=== PATIENT | female | born 1995 | race Caucasian/White ===

== ENCOUNTER 2017-07-19 16:11 | Outpatient (CLI) | payer OTHER ==
[2017-07-19 16:56] VITALS: BP 133/81; PULSE 91; RESP 18; TEMP 98
[2017-07-19 17:17] LABS: Basophils % (A) 0 %; Eosinophils % (A) 0 %; HCT 33.5 % (34.0-46.0); HGB 11.5 gm/dL (11.4-16.0); Lymphocytes # (A) 1.6 k/uL (1.0-4.8); Lymphocytes % (A) 27 %; MCH 28.9 pg (25.0-35.0); MCHC 34.5 g/dL (31.0-37.0); MCV 83.9 fL (80.0-100.0); Mean Platelet Volume 8.5; Monocytes # (A) 0.4 k/uL (0-1.0); Monocytes % (A) 7 %; Neutrophils # (A) 3.7 k/uL (1.3-7.7); Neutrophils % (A) 62 %; Platelet Count 190 k/uL (150-450); RBC 3.99 m/uL (3.80-5.40); RDW 14.9 % (11.5-15.5); WBC 5.9 k/uL (3.8-10.6)
[2017-07-19 17:20] LABS: Appearance,Urine Cloudy (Clear); Bacteria,Urine Rare /hpf; Bilirubin,Urine Negative (Negative); Blood,Urine Small (Negative); Color,Urine Light Yellow; Glucose,Urine (UA) Negative (Negative); Hyaline Casts,Urine 3 /lpf (0-2); Ketones,Urine Negative (Negative); Leukocyte Esterase,Urine Moderate (Negative); Mucus,Urine Rare /hpf; Nitrite,Urine Negative (Negative); PH, Urine 6.5 (5.0-8.0); Protein,Urine Negative (Negative); RBC,Urine 1 /hpf (0-5); Specific Gravity,Urine 1.008 (1.001-1.035); Squamous Epithelial Cell,Urine 5 /hpf (0-4); Urobilinogen,Urine <2.0 mg/dL (<2.0); WBC,Urine 5 /hpf (0-5)
[2017-07-19 17:24] LABS: ALT 27 U/L (9-52); AST 25 U/L (14-36); Blood Urea Nitrogen 11 mg/dL (7-17); LDH 474 U/L (313-618); Uric Acid 4.8 mg/dL (3.7-7.4)
--- NOTE | 2017-07-20 09:37 | P.MSEPDOC ---
Presenting Problems - Arrival Data Date of Arrival on Unit: 07/19/17 Time of Arrival on Unit: 16:11 Mode of Transport: Ambulatory - Complaint OB-Reason for Admission/Chief Complaint: Elevated Blood Pressure Medical History - Information : 1 Para: 0 Term: 0 : 0 Abortions: Spontaneous or Elective: 0 Number of Living Children: 0 - Gestational Age Gestational Age by JAY JAY (wks/days): 36 Weeks and 2 Days Review of Systems - Review of Systems Constitutional: No problems Breast: No problems ENT: No problems Cardiovascular: No problems Respiratory: No problems Gastrointestinal: No problems Genitourinary: No problems Musculoskeletal: No problems Neurological: No problems Skin: No problems Vital Signs - Temperature Temperature: 98 F Temperature Source: Temporal Artery Scan - Pulse Right Pulse Rate: 91 Pulse Assessment Method: Automatic Cuff - Respirations Respiratory Rate: 18 Oxygen Delivery Method: Room Air O2 Sat by Pulse Oximetry: 99 - Blood Pressure Right Arm Blood Pressure: 133/81 Blood Pressure Mean: 98 Blood Pressure Source: Automatic Cuff Medical Screen Scoring (Pre) - Cervical Exam Dilation: Exam Deferred Effacement: Exam Deferred Membranes: Intact - Uterine Contractions Frequency: > 5 minutes apart = 1 - Maternal Vital Signs Maternal Temperature: N/A Maternal Blood Pressure: N/A Signs of Preeclampsia: N/A Maternal Respirations: N/A - Pain Assessment Pain Scale Used: Numeric (1 - 10) Pain Intensity: 0 - Maternal Trauma Maternal Trauma: N/A - Assessment Baseline FHR: 136 Heart Rate - NICHD Category: Category I (Normal) = 0 NST: Reactive Position: N/A Station: N/A - Total Score Total Score (Pre): 1 - Level of Risk Level of Risk: Low (0-5) Physician Notification (Pre) - Physician Notified Physician Notified Date: 07/19/17 Physician Notified Time: 17:40 Physician/Practitioner Notifed:: [email or web address] Spoke With: mulugeta - Notification Comment Comment: sent from office for PIH workup- results called to dr dalal. may discharge home to follow up next week Disposition - Disposition OB Disposition: Triage, Discharge to home, Written follow up instructions reviewed Discharge Date: 07/19/17 Discharge Time: 17:50 I agree with the RN Medical Screening Exam: Yes Risk & Benefit of care provided described in d/c instruction: Yes Diagnosis: GESTATIONAL HTN W/O SIGNIFICANT PROTEINURIA, THIRD TRIMESTER
== END 2017-07-19 17:50 | disposition home or self-care (01) ==
LOC: FBPOP 16:11
PROVIDERS: ATTEND Obstetrics & Gynecology
DX: O13.3 Gestational [pregnancy-induced] hypertension without significant proteinuria, third trimester (principal); Z3A.36 36 weeks gestation of pregnancy
CPT/HCPCS: 59025; 81001; 82565; 83615; 84450; 84460; 84520; 84550; 85025

== ENCOUNTER 2017-07-31 11:54 | Inpatient (IN) | payer OTHER ==
[2017-07-31] MEDS ORDERED: LACTATED RINGERS 1,000 ML IV SCH (12:45)
[2017-07-31 13:12] LABS: Basophils % (A) 0 %; Eosinophils # (A) 0.1 k/uL (0-0.7); Eosinophils % (A) 1 %; HCT 36.7 % (34.0-46.0); HGB 12.8 gm/dL (11.4-16.0); Lymphocytes # (A) 1.4 k/uL (1.0-4.8); Lymphocytes % (A) 15 %; MCH 29.6 pg (25.0-35.0); MCHC 34.8 g/dL (31.0-37.0); MCV 85.1 fL (80.0-100.0); Mean Platelet Volume 7.6; Monocytes # (A) 0.6 k/uL (0-1.0); Monocytes % (A) 6 %; Neutrophils # (A) 7.3 k/uL (1.3-7.7); Neutrophils % (A) 76 %; Platelet Count 216 k/uL (150-450); RBC 4.32 m/uL (3.80-5.40); RDW 15.5 % (11.5-15.5); WBC 9.6 k/uL (3.8-10.6)
[2017-07-31] MEDS: LACTATED RINGERS 1,000 ML IV SCH (13:15)
[2017-07-31 13:20] LABS: ALT 27 U/L (9-52); AST 21 U/L (14-36); Blood Urea Nitrogen 9 mg/dL (7-17); LDH 469 U/L (313-618); Uric Acid 5.1 mg/dL (3.7-7.4)
[2017-07-31] MEDS ORDERED: SUCCINYLCHOLINE CHLORIDE 100 MG/5 ML SYR IV ONE (13:32)
[2017-07-31] MEDS ORDERED: MORPHINE SULFATE 10 MG/ML SYRINGE ONE (13:32)
[2017-07-31] MEDS ORDERED: ONDANSETRON 4 MG/2 ML VIAL ONE (13:32)
[2017-07-31] MEDS ORDERED: KETOROLAC 30 MG/ML 1 ML VIAL ONE (13:32)
[2017-07-31] MEDS ORDERED: PROPOFOL 10 MG/ML 20 ML VIAL IV ONE (13:32)
[2017-07-31] MEDS ORDERED: OXYTOCIN 10 UNIT/ML 1 ML VIAL ONE (13:32)
[2017-07-31] MEDS ORDERED: fentaNYL (PF) 50 MCG/ML 2 ML AMP ONE (13:32)
[2017-07-31] MEDS ORDERED: ceFAZolin 1,000 MG VIAL ONE (13:32)
[2017-07-31 13:36] LABS: Appearance,Urine Clear (Clear); Bilirubin,Urine Negative (Negative); Blood,Urine Negative (Negative); Color,Urine Yellow; Glucose,Urine (UA) Negative (Negative); Hyaline Casts,Urine 1 /lpf (0-2); Ketones,Urine Negative (Negative); Leukocyte Esterase,Urine Small (Negative); Mucus,Urine Rare /hpf; Nitrite,Urine Negative (Negative); Protein,Urine Trace (Negative); RBC,Urine <1 /hpf (0-5); Specific Gravity,Urine 1.012 (1.001-1.035); Squamous Epithelial Cell,Urine 4 /hpf (0-4); Urobilinogen,Urine <2.0 mg/dL (<2.0); WBC,Urine 1 /hpf (0-5)
--- NOTE | 2017-07-31 13:36 | US ---
EXAMINATION TYPE: US OB BPP wo non-stress DATE OF EXAM: 07/31/2017 COMPARISON: NONE CLINICAL HISTORY: non-reassuring heart tones. Decreased movement EXAM PERFORMED: Transabdominal (TA) BPP PARAMETERS: PRESENTATION: Vertex LIE: Longitudinal?? HEART RATE: 139 bpm RHYTHM: Normal ANNA: 5.9cm DIAPHRAGM IMAGED: yes BPP SCORIN. Breathin (1 episode of breathing of 30 second duration in 30 minutes of scanning time) 2. Movement: 0 (at least 3 discrete body movements in 30 minutes) 3. Tone: 0 (1 episode of active flexion/extension of limb) 4. ANNA: 2 (ANNA index > 5cm) TOTAL SCORE: 2 / 8
[2017-07-31] MEDS ORDERED: diphenhydrAMINE 50 MG CAP PO PRN (14:00)
[2017-07-31] MEDS ORDERED: METOCLOPRAMIDE 5 MG/ML 2 ML VIAL IVP PRN (14:00)
[2017-07-31] MEDS ORDERED: ACETAMINOPHEN TAB 325 MG TAB PO PRN (14:00)
[2017-07-31] MEDS ORDERED: MEASLES-MUMPS-RUBELLA VACC/PF 12,500 UNIT/0.5 ML VIAL SQ ONE (14:00)
[2017-07-31] MEDS ORDERED: KETOROLAC 30 MG/ML 1 ML VIAL IVP PRN (14:00)
[2017-07-31] MEDS ORDERED: ZOLPIDEM 5 MG TAB PO PRN (14:00)
[2017-07-31] MEDS ORDERED: diphenhydrAMINE 50 MG/ML 1 ML VIAL IVP PRN ×2 (14:00)
[2017-07-31] MEDS ORDERED: ONDANSETRON 4 MG/2 ML VIAL IVP PRN (14:00)
[2017-07-31] MEDS ORDERED: diphenhydrAMINE 25 MG CAP PO PRN (14:00)
[2017-07-31] MEDS ORDERED: NALOXONE 0.4 MG/ML 1 ML VIAL IV PRN (14:00)
--- NOTE | 2017-07-31 14:07 | P.HPOB ---
History of Present Illness H&P Date: 07/31/17 Chief Complaint: Intrauterine at term: Nonreassuring heart tones Patient is a 22-year-old at 38 weeks gestation arise for decreased movement. She reports that through the last 48 hours she felt minimal movement including yesterday when she felt one movement. She was aware to do kick counts and did do kick counts and we can but did not receive enough to Warrant passing of kick counts. She said that she talk to her mom who told her was most likely fine and not worry about it. She did not call our office or come in to labor and delivery for further evaluation over the last 48 hours despite decreasing movement. Once she arrived to labor and delivery a NST was found to be nonreactive after 25 minutes of NST did order a biophysical profile immediately for stat. I did watch the biophysical profile within the first few minutes I determined based on in the findings that there was going to be a very low number and the was ordered to be prepared for an emergent section. I do not have final biophysical profile results, however the ANNA was 5 with all pockets less than 2 cm. And while I was watching I did also do vibroacoustic stimulation which did not have any response. While the section was being readied the therapeutic case manager did complete biophysical profile. Again at this time I don't have the final result. Her course up to this time had been unremarkable other than some numbness in her hands and swelling in her ankles. She did receive RhoGAM at approximately 28 weeks. And no other abnormalities were noted. She denies any other medical problems. Her surgical history assume for my myringotomy and adenoid and tonsillectomy. ALLERGIES to Bactrim. Social history is unremarkable. Family history of heart disease and hypertension. Please see operative note for information regarding the surgery itself. Past Medical History Past Medical History: Asthma History of Any Multi-Drug Resistant Organisms: None Reported Past Surgical History: Adenoidectomy, Ear Surgery, Tonsillectomy Smoking Status: Never smoker Medications and Allergies Home Medications Medication Instructions Recorded Confirmed Type 78/Iron/Folate 1/Dha 1 each PO DAILY 07/19/17 07/31/17 History [Prenate Dha Softgel] Allergies Allergy/AdvReac Type Severity Reaction Status Date / Time milk Allergy Nausea & Verified 07/31/17 12:17 Vomiting & Diarrhea Exam Osteopathic Statement: *. No significant issues noted on an osteopathic structural exam other than those noted in the History and Physical/Consult. - Vital Signs Vital signs: Intake and Output 07/30/17 07/31/17 07/31/17 22:59 06:59 14:59 Other: Weight 78.018 kg Results Result Diagrams: 07/31/17 12:58 07/31/17 12:58 Abnormal Lab Results - Last 24 Hours (Table) 07/31/17 Range/Units 12:58 Urine Protein Trace H (Negative) Ur Leukocyte Esterase Small H (Negative) Urine Mucus Rare H (None) /hpf
--- NOTE | 2017-07-31 14:11 | P.OP ---
Date of Procedure: 07/31/17 Preoperative Diagnosis: Intrauterine at term: Nonreassuring heart tones Postoperative Diagnosis: Same Procedure(s) Performed: Primary low-transverse section Anesthesia: RADHAMES Surgeon: Adebayo Ye Welfare Adviser #1: Jakub Bah Estimated Blood Loss (ml): 500 IV fluids (ml): 1,000 Urine output (ml): 50 Pathology: other (Placenta) Condition: stable Disposition: floor Operative Findings: Male scores and weight are pending and babies in special care nursery with sledger present Description of Procedure: Patient was taken to the operating suite where general anesthetic was found be adequate. She was previously prepped and draped. A Pfannenstiel skin incision was made and this incision was then carried through to underlying layer of the fascia. Fascia was then nicked in the midline and this incision was extended laterally with Henderson's scissors. Superior and inferior aspects of this incision were then grasped tented up and bluntly and sharply dissected off the rectus muscles. Rectus muscles were then divided midline and blunt dissection the peritoneum was made. This opening was then extended superiorly and inferiorly with good visualization of both bowel bladder. Bladder blade was placed knife was then used to incise uterus above the bladder line. Once this was completed a hemostat was used to fully develop the incision and it was extended bluntly. Head was then atraumatically delivered followed by shoulders. Umbilical cord was clamped and cut immediately and baby was taken by nursery personnel. Cord blood sample was obtained as well as blood for Rh antibody. Placenta was then delivered intact and Pitocin was added to the IV. Uterus was then exteriorized cleared of clots and debris and closed in 2 layers with 0 Vicryl suture. Blood and debris was then suctioned from the posterior cul-de-sac and the uterus was reinserted into the abdomen. Peritoneal layer was then closed with 3-0 Vicryl. Fascial layer was closed [place] suture. One layer of 3 and 3-0 Vicryl was placed in deep subcuticular tissues to reapproximate the skin and close space. Skin was then closed [place]. Sponge, lap, needle counts were all correct 2. Patient was then taken to the recovery room in stable and satisfactory condition.
[2017-07-31] MEDS: HYDROmorphone PCA 5 MG/25 ML SYRINGE IV PRN (14:50)
[2017-07-31 15:05] LABS: Amphetamine Screen,Urine Not Detected (NotDetected); Barbiturate Screen,Urine Not Detected (NotDetected); Benzodiazepines Screen,Urine Not Detected (NotDetected); Cocaine Screen,Urine Not Detected (NotDetected); Methadone Screen, Urine Not Detected (NotDetected); Opiate Screen,Urine Not Detected (NotDetected); Oxycodone Screen, Urine Not Detected (NotDetected); Phencyclidine Screen,Urine Not Detected (NotDetected); Tricyclic Antidepressant,Urine Not Detected (NotDetected); Urn Cannabinoid Scrn Not Detected (NotDetected)
[2017-07-31 15:32] VITALS: BMI 33.5
--- NOTE | 2017-07-31 17:45 | P.PN ---
Progress Note - Text Progress Note Date: 07/31/17 Patient is seen and evaluated postop day 0. She is resting comfortably in bed pain is adequately controlled currently with SIGNAL SUPERVISOR. I did discuss with she, her , and both of their mothers that is unclear what the etiology of today's events was. Did not see anything unusual on the placenta there was no nuchal cord or other findings that I can determine other than potentially with low ANNA some type of cord compression but even that is difficult to say with any certainty. [facility]. scores were 0, 5 , and 7 at one and 5 and 10 minutes. It is somewhat unusual from my standpoint that the initial heart rate was absent when she was doing the biophysical profile cardiac activity was easily visualized and was 139 bpm. Even after the biophysical profile was done in the 2 or 3 minutes prior to going to the C- section room the baby was back on the monitor with heart rate of 150. To the best of my ability of explained the thought process and what guided our decision making process leading up to the section family and patient all seemed to understand the process of what occurred but like myself are confused at what may have led to this event. At this time however Siobhan is from a medical standpoint and surgical standpoint stable. We'll plan to allow her to have liquids tonight and maintain pain control with expectation that she may able to go home tomorrow or certainly the next day if she is continuing to improve.
[2017-07-31] MEDS ORDERED: OXYTOCIN 20 UNITS/1000 ML NS 1,000 ML IV SCH (18:15)
[2017-07-31] MEDS: SENNOSIDES-DOCUSATE SODIUM 1 EACH TAB PO SCH (21:50)
[2017-08-01] MEDS: LACTATED RINGERS 1,000 ML IV SCH ×2 (01:05→05:54)
[2017-08-01] MEDS: HYDROmorphone PCA 5 MG/25 ML SYRINGE IV PRN (05:34)
[2017-08-01] MEDS: SENNOSIDES-DOCUSATE SODIUM 1 EACH TAB PO SCH ×2 (08:03→19:53)
[2017-08-01 08:14] LABS: Basophils % (A) 0 %; Eosinophils % (A) 0 %; HCT 33.1 % (34.0-46.0); HGB 11.1 gm/dL (11.4-16.0); Lymphocytes # (A) 0.9 k/uL (1.0-4.8); Lymphocytes % (A) 9 %; MCH 29.4 pg (25.0-35.0); MCHC 33.7 g/dL (31.0-37.0); MCV 87.3 fL (80.0-100.0); Mean Platelet Volume 7.5; Monocytes # (A) 0.3 k/uL (0-1.0); Monocytes % (A) 3 %; Neutrophils # (A) 8.8 k/uL (1.3-7.7); Neutrophils % (A) 86 %; Platelet Count 170 k/uL (150-450); RBC 3.79 m/uL (3.80-5.40); RDW 15.8 % (11.5-15.5); WBC 10.2 k/uL (3.8-10.6)
--- NOTE | 2017-08-01 08:34 | P.PNOBGPC ---
Subjective - Subjective Principal diagnosis: Status post primary section postoperative day #1 Interval history: Patient has been ambulating to the bathroom. She is urinating without difficulty. She denies any flatus or bowel movement yet. Pain is fairly well controlled with PEDIATRIC NEPHROLOGIST pump. Lochia is decreasing. She is attempting to pump her breast milk. I did have a long discussion with the patient regarding the events of yesterday and the symptoms leading up to that point. She states when she saw me in the office last week she was feeling very good movement and it continued all the way up until the weekend. She stated she started to feel less strong movement but she was still feeling movement for 1 day and then the next day she didn't feel any movement. She stated this happened once before earlier on in her and when she waited a day and the movement returned. Her family told her that the baby was most likely trying to turn. This time the movement did not return and therefore she came in yesterday for decreased movement. She denied any other symptoms such as headaches, blurry vision, or epigastric pain. She was not feeling irregular contractions. Currently she states that [facility] called her yesterday and told her that the baby's platelets were low and they were going to transfuse him. They also told her that he is still on a breathing tube but they are lowering the amount of oxygen that he needs. Patient reports: Reports appetite normal, Reports voiding normally, Reports pain well controlled, Reports ambulating normally : transported Objective - Vital Signs Latest vital signs: Vital Signs Temp Pulse Resp BP Pulse Ox 08/01/17 04:00 98.1 F 92 16 130/80 08/01/17 00:00 98.1 F 87 16 142/75 07/31/17 20:00 98.2 F 98 16 135/82 07/31/17 16:18 98.4 F 87 18 137/74 98 07/31/17 15:48 94 18 144/78 98 07/31/17 15:18 85 16 128/72 98 07/31/17 15:03 80 16 131/70 98 07/31/17 14:48 88 16 135/72 99 07/31/17 14:33 88 16 139/85 98 07/31/17 14:18 97.5 F L 92 16 143/80 98 07/31/17 13:26 125 H 16 134/75 07/31/17 12:32 97.9 F 104 H 16 144/86 07/31/17 12:05 97.9 F 104 H 16 144/86 97 Intake and Output 07/31/17 08/01/17 08/01/17 22:59 06:59 14:59 Intake Total 60 1200 Output Total 350 450 Balance -290 750 Intake: Oral 60 1200 Output: Urine 350 450 Uretheral (Amos) 450 - Exam Extremities: Present: edema (One plus pitting edema). Absent: tenderness Abdomen: Present: normal appearance, soft. Absent: distention, tenderness Incision: Present: normal, dry, intact. Absent: erythematous Uterus: Present: normal, firm. Absent: tenderness - Labs Labs: Abnormal Lab Results - Last 24 Hours (Table) 07/31/17 08/01/17 Range/Units 12:58 07:40 RBC 3.79 L (3.80-5.40) m/uL Hgb 11.1 L (11.4-16.0) gm/dL Hct 33.1 L (34.0-46.0) % RDW 15.8 H (11.5-15.5) % Neutrophils # 8.8 H (1.3-7.7) k/uL Lymphocytes # 0.9 L (1.0-4.8) k/uL Urine Protein Trace H (Negative) Ur Leukocyte Esterase Small H (Negative) Urine Mucus Rare H (None) /hpf Assessment and Plan Assessment: Impression is status post primary stat section postoperative day #1 (1) delivery delivered Current Visit: Yes Status: Acute Code(s): O82 - ENCOUNTER FOR DELIVERY WITHOUT INDICATION SNOMED Code(s): 428203810 Plan: We'll continue with postoperative care. Will switch to oral pain medication. I have advised daily that she should stay until she is at least passing some flatus and her pain is well-controlled on oral pain medication. I will check back later today to see how she is doing and if she is doing better, she may be able to be discharge early so that she can go see her baby.
[2017-08-01] MEDS ORDERED: HYDROcodone/APAP 5-325MG 1 EACH TAB PO PRN (08:44)
[2017-08-01] MEDS ORDERED: HYDROcodone/APAP 7.5-325MG 1 EACH TAB PO PRN (08:44)
[2017-08-01] MEDS: IBUPROFEN 600 MG TAB PO PRN ×2 (16:18→22:26)
[2017-08-02] MEDS: IBUPROFEN 600 MG TAB PO PRN (08:24)
--- NOTE | 2017-08-02 08:37 | P.DS ---
Providers Date of admission: 07/31/17 13:27 Expected date of discharge: 08/02/17 Attending physician: Leonor Figueroa - Discharge Diagnosis(es) (1) delivery delivered Current Visit: Yes Status: Acute Hospital Course: This is a 22-year-old female 1 para 0 at 38-0/7 weeks who presented to labor and delivery with complaints of decreased movement for 2 days. Please see history and physical for details of patient's admission. She had a nonreactive nonstress test and biophysical profile was low and therefore stat section was called. She underwent a primary low transverse section under general anesthesia and delivered a viable male with scores of 0 at 1 minute 5 at 5 minutes and 7 at 10 minutes and infant weight of 6 lbs. 0 oz. Her [facility] and apparently is doing well at this time. She has been pumping her breast milk. Lochia is decreasing. She is passing flatus but no bowel movement yet. Pain is well- controlled with ibuprofen. Vital signs are stable. Abdomen is soft with positive bowel sounds 4. Incision is clean dry and intact. Vanessa are in place. There is a small amount of dried blood on the left side of the incision. Extremities show negative Homans. Impression is status post stat section postoperative day #2. Plan is to discharge home today. [place] will be removed and Steri-Strips placed prior to discharge. She will be given a prescription for ibuprofen. She is advised to follow up in the office in 1 week for a postoperative check and in 6 weeks for a check. She has a breast pump at home. Routine and postoperative instructions are given. She is advised to call the office if she has any further questions or concerns prior to her appointment times. Procedures: Stat primary low transverse section on 07/31/2017 with delivery of a viable male infant Patient Condition at Discharge: Stable Plan - Discharge Summary New Discharge Prescriptions: New Ibuprofen [Motrin] 600 mg PO Q6HR PRN #60 tab PRN Reason: Mild Pain Or Fever >= 100.5 Continue 78/Iron/Folate 1/Dha [Prenate Dha Softgel] 1 each PO DAILY Discharge Medication List 78/Iron/Folate 1/Dha [Prenate Dha Softgel] 1 each PO DAILY 07/19/17 [ History] Ibuprofen [Motrin] 600 mg PO Q6HR PRN #60 tab 08/02/17 [Rx] Follow up Appointment(s)/Referral(s): Leonor Figueroa DO [Doctor of Osteopathic Medicine] - 1 Week Activity/Diet/Wound Care/Special Instructions: Instructions 1. Do not begin any exercise program for 3 weeks. 2. Do not resume sexual relations for 3 weeks or longer if uncomfortable. 3. You may take tub baths or showers at any time. 4. You may use tampons if desired after 3 weeks. 5. Keep the area of episiotomy (stitches) clean and dry. 6. If you are not nursing, wear a good fitting, supportive bra during the day and limit fluid intake for at least 1 week to prevent breast engorgement. 7. Call the office, [phone], within the next week to make appointment for your 6 week checkup if it has not already been made. 8. Report any of the following occurrences to the doctor promptly: a. Heavy, excessive bleeding b. Chills, fever c. Burning or frequency of urination d. Pain or redness and breasts if nursing e. Increasing pain or swelling in episiotomy (stitches). In addition to the above instructions, the following additional should be followed: 1. No heavy lifting or straining (exercising) until after 6 week checkup. 2. Keep abdominal incision clean and dry: You may wear a dressing if more comfortable. 3. Make office appointment for 10 days after going home or as instructed by her doctor. Discharge Disposition: HOME SELF-CARE
[2017-08-02] MEDS: SENNOSIDES-DOCUSATE SODIUM 1 EACH TAB PO SCH (09:29)
[2017-08-02 10:14] VITALS: BP 132/75; PULSE 96; RESP 18; TEMP 97.4
== END 2017-08-02 11:30 | disposition home or self-care (01) | DRG 766 ==
LOC: FBPOP 11:54 → 4FBP 13:27
PROVIDERS: ADMIT Obstetrics & Gynecology; ATTEND Obstetrics & Gynecology
PROC: 10D00Z1 Extraction of Products of Conception, Low, Open Approach (ICD-10-PCS; principal; 2017-07-31 13:30)
DX: O76 Abnormality in fetal heart rate and rhythm complicating labor and delivery (principal); O99.52 Diseases of the respiratory system complicating childbirth; J45.909 Unspecified asthma, uncomplicated; Z37.0 Single live birth; Z3A.38 38 weeks gestation of pregnancy; Z88.2 Allergy status to sulfonamides; Z82.49 Family history of ischemic heart disease and other diseases of the circulatory system; Z91.011 Allergy to milk products
CPT/HCPCS: 59025; 76819; 80306; 81001; 82565; 82947; 83615; 84450; 84460; 84520; 84550; 85025; 88307; 96360; 99215

== ENCOUNTER → 2018-10-19 | Outpatient (CLI) | payer OTHER ==
[2018-10-19 16:58] LABS: Basophils % (A) 1 %; Eosinophils # (A) 0.1 k/uL (0-0.7); Eosinophils % (A) 1 %; HCT 44.5 % (34.0-46.0); HGB 14.7 gm/dL (11.4-16.0); Lymphocytes # (A) 1.6 k/uL (1.0-4.8); Lymphocytes % (A) 26 %; MCH 28.7 pg (25.0-35.0); MCV 86.9 fL (80.0-100.0); Mean Platelet Volume 6.7; Monocytes # (A) 0.3 k/uL (0-1.0); Monocytes % (A) 4 %; Neutrophils % (A) 66 %; Platelet Count 355 k/uL (150-450); RBC 5.12 m/uL (3.80-5.40); RDW 13.8 % (11.5-15.5); WBC 6.1 k/uL (3.8-10.6)
[2018-10-20 01:15] LABS: T4, Free (Free Thyroxine) 1.3 ng/dL (0.80-1.80)
[2018-10-20 01:17] LABS: African American GFR (CKD) 120.4 (60.0-200.0); Albumin/Globulin Ratio 2.5 (1.60-3.17); Calcium 10.2 mg/dL (8.7-10.3); Potassium 4.1 mmol/L (3.5-5.5); Total Bilirubin 0.5 mg/dL (0.3-1.2)
== END | disposition home or self-care (01) ==
LOC: LABWHC1 15:25
PROVIDERS: ATTEND Family Medicine
DX: L65.9 Nonscarring hair loss, unspecified (principal); R63.5 Abnormal weight gain; R53.83 Other fatigue
CPT/HCPCS: 36415; 80053; 84439; 84443; 85025; 86800

== ENCOUNTER 2021-02-26 11:59 | Outpatient (CLI) | payer BC, OTHER ==
[2021-02-26 13:29] LABS: Basophils % (A) 0 %; Eosinophils % (A) 0 %; HCT 36.3 % (34.0-46.0); HGB 11.9 gm/dL (11.4-16.0); Hypochromasia Slight; Lymphocytes # (A) 0.7 k/uL (1.0-4.8); Lymphocytes % (A) 11 %; MCH 28.7 pg (25.0-35.0); MCHC 32.9 g/dL (31.0-37.0); MCV 87.2 fL (80.0-100.0); Mean Platelet Volume 8.1; Monocytes # (A) 0.3 k/uL (0-1.0); Monocytes % (A) 4 %; Neutrophils # (A) 5.7 k/uL (1.3-7.7); Neutrophils % (A) 83 %; Platelet Count 172 k/uL (150-450); Poikilocytosis Slight; RBC 4.16 m/uL (3.80-5.40); RDW 14.9 % (11.5-15.5); WBC 6.9 k/uL (3.8-10.6)
[2021-02-26 14:03] LABS: Appearance,Urine Clear (Clear); Bilirubin,Urine Negative (Negative); Blood,Urine Negative (Negative); Color,Urine Light Yellow; Glucose,Urine (UA) Negative (Negative); Ketones,Urine Negative (Negative); Leukocyte Esterase,Urine Trace (Negative); Nitrite,Urine Negative (Negative); Protein,Urine Negative (Negative); RBC,Urine 2 /hpf (0-5); Specific Gravity,Urine 1.006 (1.001-1.035); Squamous Epithelial Cell,Urine 9 /hpf (0-4); Urobilinogen,Urine <2.0 mg/dL (<2.0); WBC,Urine 2 /hpf (0-5)
[2021-02-26 14:54] VITALS: BP 127/62; PULSE 110; RESP 16; TEMP 98.5
--- NOTE | 2021-03-09 13:17 | P.MSEPDOC ---
Presenting Problems - Arrival Data Date of Arrival on Unit: 02/26/21 Time of Arrival on Unit: 12:05 Mode of Transport: Ambulatory - Complaint OB-Reason for Admission/Chief Complaint: Other Comment: pt to triage after calling office reporting body aches, congestion and cough, dr figueroa would like pt to have OB visit on unit Medical History - Information : 2 Para: 1 Term: 1 : 0 Abortions: Spontaneous or Elective: 0 Number of Living Children: 1 - Gestational Age Gestational Age by JAY JAY (wks/days): 37 Weeks and 4 Days Review of Systems - Review of Systems Constitutional: No problems Breast: No problems ENT: Cough, Nasal congestion Cardiovascular: No problems Respiratory: No problems Gastrointestinal: No problems Genitourinary: No problems Musculoskeletal: No problems Neurological: No problems Skin: No problems Vital Signs - Temperature Temperature: 98.5 F Temperature Source: Oral - Pulse Right Brachial Pulse Rate: 110 Pulse Assessment Method: Automatic Cuff - Respirations Respiratory Rate: 16 Oxygen Delivery Method: Room Air O2 Sat by Pulse Oximetry: 99 - Blood Pressure Right Arm Blood Pressure: 127/62 Blood Pressure Mean: 83 Blood Pressure Source: Automatic Cuff Medical Screen Scoring - Cervical Exam Dilation (cm): 2 Effacement (%): 60 Station: -2 Membranes: Intact - Assessment - Baby A Baseline FHR: 125 Heart Rate - NICHD Category: Category I (Normal) NST: Reactive Physician Notification - Physician Notified Physician Notified Date: 02/26/21 Physician Notified Time: 12:49 Physician: Leonor Figueroa - Notification Comment Comment: dr figueroa at bedside, gave orders for cbc, ua, covid/influenva swab. pt may be discharged home after results Maternal Triage Index - Maternal Triage Index Presenting for scheduled procedure w/no complaint: No - Stat/Priority 1 Stat Priority 1: No - Urgent/Priority 2 Urgent Priority 2: No - Prompt/Priority 3 Prompt Priority 3: No - Non-Urgent/Priority 4 Non-Urgent Priority 4: Yes Criteria Met for Priority 4: 1249 dr figueroa at bedside Disposition - Disposition OB Disposition: Discharge to home Discharge Date: 02/26/21 Discharge Time: 14:45 I agree with the RN Medical Screening Exam: Yes Case reviewed; plan agreed upon as documented in EMR&OBIX.: Yes Diagnosis: COVID-19 Additional Diagnoses: 3rd trimester
== END 2021-02-26 14:45 | disposition home or self-care (01) ==
LOC: FBPOP 11:59
PROVIDERS: ATTEND Obstetrics & Gynecology
DX: O98.513 Other viral diseases complicating pregnancy, third trimester (principal); Z3A.37 37 weeks gestation of pregnancy
CPT/HCPCS: 81001; 85025; 87502; 87635; 99213

== ENCOUNTER 2021-03-02 10:00 | Emergency (ER) | payer BC, OTHER ==
[2021-03-02 10:20] VITALS: RESP 18
[2021-03-02] MEDS ORDERED: ACETAMINOPHEN TAB 500 MG TAB PO STA (10:32)
[2021-03-02] MEDS ORDERED: SODIUM CHLORIDE 0.9% 1,000 ML IV STA (10:32)
--- NOTE | 2021-03-02 10:36 | ED ---
General Adult HPI - General Chief complaint: Shortness of Breath Stated complaint: covid+, SOB & vomiting, 38 wks preg Time Seen by Provider: 03/02/21 10:24 Source: patient Mode of arrival: ambulatory Limitations: no limitations - History of Present Illness Initial comments: Patient is a 25-year-old female who is approximately 38 weeks , present ing to the emergency room today with a chief complaint of increased nausea vomiting from last night. She states she's had decreased appetite. She does admit that she's test positive COVID-19 4 days ago. She states her symptoms started over 2 weeks ago with not feeling well with some cough and congestion and body aches. Patient denies any other complaints or any other symptoms at this time. Patient denies any recent fever, chills, shortness of breath, chest pain, back pain, abdominal pain, headaches or visual changes, or any other complaints. - Related Data Home Medications Medication Instructions Recorded Confirmed 78/Iron/Folate 1/Dha 1 cap PO DAILY 07/19/17 03/02/21 [Prenate Dha Softgel] Amoxicillin 500 mg PO TID 03/02/21 03/02/21 Allergies Allergy/AdvReac Type Severity Reaction Status Date / Time milk Allergy Nausea & Verified 07/31/17 12:17 Vomiting & Diarrhea Review of Systems ROS Statement: Those systems with pertinent positive or pertinent negative responses have been documented in the HPI. ROS Other: All systems not noted in ROS Statement are negative. Past Medical History Past Medical History: Asthma History of Any Multi-Drug Resistant Organisms: None Reported Past Surgical History: Adenoidectomy, Ear Surgery, Tonsillectomy Past Anesthesia/Blood Transfusion Reactions: No Reported Reaction Past Psychological History: No Psychological Hx Reported Smoking Status: Never smoker - Past Family History Mother History Unknown: Yes General Exam - General Exam Comments Initial Comments: General: The patient is awake and alert, in no distress, and does not appear acutely ill. Eye: There is normal conjunctiva bilaterally. No signs of icterus. Ears, nose, mouth and throat: There are moist mucous membranes and no oral lesions. Neck: The neck is supple, there is no tenderness or JVD. Cardiovascular: There is a regular rate and rhythm. No murmur, rub or gallop is appreciated. Respiratory: respirations are non-labored, breath sounds are equal. Musculoskeletal: Normal ROM, no tenderness. Neurological: A&O x 3. CN II-XII intact, There are no obvious motor or sensory deficits. Coordination appears grossly intact. Speech is normal. Skin: Skin is warm and dry and no rashes or lesions are noted. Psychiatric: Cooperative, appropriate mood & affect, normal judgment. Limitations: no limitations Course Vital Signs 03/02/21 03/02/21 10:16 12:25 Temperature 99.2 F 100.4 F H Pulse Rate 115 H 114 H Respiratory 18 18 Rate Blood Pressure 136/82 121/72 O2 Sat by Pulse 97 98 Oximetry EKG Findings - EKG Comments: EKG Findings:: EKG performed: 1117. Normal sinus tachycardia to 116 bpm. ND interval 114. QRS 84. QT/QTc 310/430. No acute ST changes. Medical Decision Making - Medical Decision Making Patient reexamined at this times resting couple. Patient pulse ox currently 98% on room air. She did have a low-grade fever here at triage. She does have a known diagnosis: 19.Please use medication as discussed. Please follow-up with family doctor in the next 2 days of symptoms have not improved. Please return to emergency room if the symptoms increase or worsen or for any other concerns. Was tachycardic at triage. Patient was given some IV fluids she does admit that she's had some nausea vomiting. Patient had no abdominal discomfort. She is 38 weeks . Was discussed with the patient about concern and higher risk for blood clots. A d-dimer was obtained. It did come back elevated at 1.43. Was discussed with patient that we could not rule out possible blood clot. Was discussed with patient about obtaining a CT of the chest. Risk and benefits of radiation exposure were discussed in detail. At this time patient has declined. Was discussed that concern for blood clot could be life-threatening. She s tates she feels well will prefer to be discharged. The patient will plan to follow-up with [facility] over the next 2 days. Patient is advised that she should return here to the emergency room if any symptoms increase or worsen or for any other concerns. - Lab Data Result diagrams: 03/02/21 11:06 03/02/21 11:06 Lab Results 03/02/21 03/02/21 03/02/21 Range/Units 11:06 11:06 11:15 WBC 8.8 (3.8-10.6) k/uL RBC 4.52 (3.80-5.40) m/uL Hgb 12.6 (11.4-16.0) gm/dL Hct 38.6 (34.0-46.0) % MCV 85.3 (80.0-100.0) fL MCH 28.0 (25.0-35.0) pg MCHC 32.8 (31.0-37.0) g/dL RDW 14.6 (11.5-15.5) % Plt Count 195 (150-450) k/uL MPV 8.6 Neutrophils % 81 % Lymphocytes % 13 % Monocytes % 4 % Eosinophils % 0 % Basophils % 1 % Neutrophils # 7.1 (1.3-7.7) k/uL Lymphocytes # 1.2 (1.0-4.8) k/uL Monocytes # 0.4 (0-1.0) k/uL Eosinophils # 0.0 (0-0.7) k/uL Basophils # 0.0 (0-0.2) k/uL Poikilocytosis Slight D-Dimer (<0.60) mg/L FEU Sodium 136 L (137-145) mmol/L Potassium 4.6 (3.5-5.1) mmol/L Chloride 108 H (98-107) mmol/L Carbon Dioxide 18 L (22-30) mmol/L Anion Gap 10 mmol/L BUN 8 (7-17) mg/dL Creatinine 1.02 (0.52-1.04) mg/dL Est GFR (CKD-EPI)AfAm 89 (>60 ml/min/1.73 sqM) Est GFR (CKD-EPI)NonAf 77 (>60 ml/min/1.73 sqM) Glucose 83 (74-99) mg/dL Calcium 9.3 (8.4-10.2) mg/dL Total Bilirubin 0.6 (0.2-1.3) mg/dL AST 615 H (14-36) U/L ALT 323 H (4-34) U/L Alkaline Phosphatase 335 H (38-126) U/L Total Protein 6.1 L (6.3-8.2) g/dL Albumin 3.3 L (3.5-5.0) g/dL Urine Color Yellow Urine Appearance Cloudy H (Clear) Urine pH 6.5 (5.0-8.0) Ur Specific [place] 1.009 (1.001-1.035) Urine Protein Trace H (Negative) Urine Glucose (UA) Negative (Negative) Urine Ketones 1+ H (Negative) Urine Blood Negative (Negative) Urine Nitrite Negative (Negative) Urine Bilirubin Negative (Negative) Urine Urobilinogen <2.0 (<2.0) mg/dL Ur Leukocyte Esterase Negative (Negative) Urine RBC <1 (0-5) /hpf Urine WBC <1 (0-5) /hpf Ur Squamous Epith Cells 12 H (0-4) /hpf Urine Bacteria Occasional H (None) /hpf 03/02/21 Range/Units 11:35 WBC (3.8-10.6) k/uL RBC (3.80-5.40) m/uL Hgb (11.4-16.0) gm/dL Hct (34.0-46.0) % MCV (80.0-100.0) fL MCH (25.0-35.0) pg MCHC (31.0-37.0) g/dL RDW (11.5-15.5) % Plt Count (150-450) k/uL MPV Neutrophils % % Lymphocytes % % Monocytes % % Eosinophils % % Basophils % % Neutrophils # (1.3-7.7) k/uL Lymphocytes # (1.0-4.8) k/uL Monocytes # (0-1.0) k/uL Eosinophils # (0-0.7) k/uL Basophils # (0-0.2) k/uL Poikilocytosis D-Dimer 1.43 H (<0.60) mg/L FEU Sodium (137-145) mmol/L Potassium (3.5-5.1) mmol/L Chloride (98-107) mmol/L Carbon Dioxide (22-30) mmol/L Anion Gap mmol/L BUN (7-17) mg/dL Creatinine (0.52-1.04) mg/dL Est GFR (CKD-EPI)AfAm (>60 ml/min/1.73 sqM) Est GFR (CKD-EPI)NonAf (>60 ml/min/1.73 sqM) Glucose (74-99) mg/dL Calcium (8.4-10.2) mg/dL Total Bilirubin (0.2-1.3) mg/dL AST (14-36) U/L ALT (4-34) U/L Alkaline Phosphatase (38-126) U/L Total Protein (6.3-8.2) g/dL Albumin (3.5-5.0) g/dL Urine Color Urine Appearance (Clear) Urine pH (5.0-8.0) Ur Specific [place] (1.001-1.035) Urine Protein (Negative) Urine Glucose (UA) (Negative) Urine Ketones (Negative) Urine Blood (Negative) Urine Nitrite (Negative) Urine Bilirubin (Negative) Urine Urobilinogen (<2.0) mg/dL Ur Leukocyte Esterase (Negative) Urine RBC (0-5) /hpf Urine WBC (0-5) /hpf Ur Squamous Epith Cells (0-4) /hpf Urine Bacteria (None) /hpf Disposition Clinical Impression: Nausea & vomiting, COVID-19, Disposition: HOME SELF-CARE Condition: Stable Instructions (If sedation given, give patient instructions): Coronavirus Disease 2019 (COVID-19) Additional Instructions: Please follow-up with your [facility] over the next 2 days return here to emergency room if any symptoms increase or worsen or for any other concerns. Is patient prescribed a controlled substance at d/c from ED?: No Referrals: Edinson Luke Jr, [Primary Care Provider] - 1-2 days Time of Disposition: 12:45
[2021-03-02 11:16] LABS: Basophils % (A) 1 %; Eosinophils % (A) 0 %; HCT 38.6 % (34.0-46.0); HGB 12.6 gm/dL (11.4-16.0); Lymphocytes # (A) 1.2 k/uL (1.0-4.8); Lymphocytes % (A) 13 %; MCHC 32.8 g/dL (31.0-37.0); MCV 85.3 fL (80.0-100.0); Mean Platelet Volume 8.6; Monocytes # (A) 0.4 k/uL (0-1.0); Monocytes % (A) 4 %; Neutrophils # (A) 7.1 k/uL (1.3-7.7); Neutrophils % (A) 81 %; Platelet Count 195 k/uL (150-450); Poikilocytosis Slight; RBC 4.52 m/uL (3.80-5.40); RDW 14.6 % (11.5-15.5); WBC 8.8 k/uL (3.8-10.6)
[2021-03-02 11:28] LABS: Albumin 3.3 g/dL (3.5-5.0); Calcium 9.3 mg/dL (8.4-10.2); Total Bilirubin 0.6 mg/dL (0.2-1.3); Total Protein 6.1 g/dL (6.3-8.2)
[2021-03-02 11:36] LABS: Potassium 4.6 mmol/L (3.5-5.1)
[2021-03-02 12:01] LABS: Appearance,Urine Cloudy (Clear); Bacteria,Urine Occasional /hpf; Bilirubin,Urine Negative (Negative); Blood,Urine Negative (Negative); Color,Urine Yellow; Glucose,Urine (UA) Negative (Negative); Ketones,Urine 1+ (Negative); Leukocyte Esterase,Urine Negative (Negative); Nitrite,Urine Negative (Negative); PH, Urine 6.5 (5.0-8.0); Protein,Urine Trace (Negative); RBC,Urine <1 /hpf (0-5); Specific Gravity,Urine 1.009 (1.001-1.035); Squamous Epithelial Cell,Urine 12 /hpf (0-4); Urobilinogen,Urine <2.0 mg/dL (<2.0); WBC,Urine <1 /hpf (0-5)
[2021-03-02 12:28] VITALS: BP 121/72; PULSE 114; TEMP 100.4
== END 2021-03-02 13:23 | disposition home or self-care (01) ==
LOC: EC 10:00
DX: O98.513 Other viral diseases complicating pregnancy, third trimester (principal); U07.1 COVID-19; O99.513 Diseases of the respiratory system complicating pregnancy, third trimester; J45.909 Unspecified asthma, uncomplicated; Z91.011 Allergy to milk products; Z3A.38 38 weeks gestation of pregnancy
CPT/HCPCS: 36415; 80053; 81001; 85025; 85379; 93005; 96360; 99285

== ENCOUNTER 2021-03-15 03:20 | Inpatient (IN) | payer BC, OTHER ==
[2021-03-15] MEDS ORDERED: CARBOPROST TROMETHAMINE 250 MCG/ML 1 ML AMP IM PRN (03:58)
[2021-03-15] MEDS ORDERED: METHYLERGONOVINE 0.2 MG/ML 1 ML AMP IM PRN (03:58)
[2021-03-15] MEDS ORDERED: OXYTOCIN 10 UNIT/ML 1 ML VIAL IM PRN (03:58)
[2021-03-15] MEDS ORDERED: LIDOCAINE 0.5% (PF) 5 MG/ML (50 ML SDV) SQ PRN (03:58)
[2021-03-15] MEDS ORDERED: TERBUTALINE 1 MG/ML VIAL SQ PRN (03:58)
[2021-03-15] MEDS: LACTATED RINGERS 1,000 ML IV SCH ×4 (04:00→13:01)
[2021-03-15 04:24] LABS: Basophils % (A) 0 %; Eosinophils % (A) 1 %; HGB 11.8 gm/dL (11.4-16.0); Hypochromasia Slight; Lymphocytes # (A) 2.2 k/uL (1.0-4.8); Lymphocytes % (A) 26 %; MCH 27.7 pg (25.0-35.0); MCV 86.6 fL (80.0-100.0); Mean Platelet Volume 8.5; Monocytes # (A) 0.5 k/uL (0-1.0); Monocytes % (A) 6 %; Neutrophils # (A) 5.5 k/uL (1.3-7.7); Neutrophils % (A) 65 %; Platelet Count 222 k/uL (150-450); Poikilocytosis Slight; RBC 4.28 m/uL (3.80-5.40); RDW 15.2 % (11.5-15.5); WBC 8.4 k/uL (3.8-10.6)
[2021-03-15 04:36] LABS: Appearance,Urine Clear (Clear); Bilirubin,Urine Negative (Negative); Blood,Urine Trace (Negative); Color,Urine Light Yellow; Glucose,Urine (UA) Negative (Negative); Ketones,Urine Negative (Negative); Leukocyte Esterase,Urine Negative (Negative); Nitrite,Urine Negative (Negative); Protein,Urine Negative (Negative); RBC,Urine 1 /hpf (0-5); Specific Gravity,Urine 1.005 (1.001-1.035); Squamous Epithelial Cell,Urine <1 /hpf (0-4); Urobilinogen,Urine <2.0 mg/dL (<2.0); WBC,Urine <1 /hpf (0-5)
[2021-03-15 04:39] LABS: INR 0.9 (<1.2); Partial Thromboplastin Time 22.3 sec (22.0-30.0); Prothrombin Time 9.4 sec (9.0-12.0)
[2021-03-15 04:43] LABS: Creatinine,Urine Random 40.2 mg/dL; Protein/Creatinine Ratio,Urine 0.597
[2021-03-15 04:43] LABS: ALT 41 U/L (4-34); AST 45 U/L (14-36); African American GFR (CKD) >90 (>60 ml/min/1.73 sqM); Blood Urea Nitrogen 11 mg/dL (7-17); LDH 667 U/L (313-618); Magnesium 2.2 mg/dL (1.6-2.3); Non-African American GFR(CKD) >90 (>60 ml/min/1.73 sqM); Uric Acid 4.8 mg/dL (3.7-7.4)
[2021-03-15] MEDS ORDERED: SODIUM CHLORIDE 0.9% 100 ML BAG ONE (08:29)
[2021-03-15] MEDS ORDERED: BUPIVACAINE (PF) 0.25% 30 ML VIAL ONE (08:29)
[2021-03-15] MEDS ORDERED: fentaNYL (PF) 50 MCG/ML 5 ML AMP ONE (08:29)
--- NOTE | 2021-03-15 09:04 | P.HPOB ---
History of Present Illness H&P Date: 03/15/21 Chief Complaint: Spontaneous rupture of membranes This is a 25-year-old female 2 para 1 with an estimated date of confinement of 03/15/2021, estimated gestational age of 40-0/7 weeks, who presents to labor and delivery with complaints of spontaneous rupture membranes at approximately 3 AM this morning. She states she had clear fluid. She began feeling contractions a few hours later at approximately 6 AM. course was complicated by coven positive on February 26. She has recovered from this. She denies any headaches or blurry vision. Denies any swelling or epigastric pain. labs: Hepatitis B surface antigen-negative RPR-nonreactive Rubella-immune Blood type-A- Antibody screen-negative HIV-nonreactive Hemoglobin-14.1 Random glucose-78 Obstetrical ultrasound-normal anatomy One hour Glucola-142 Three-hour Glucola-within normal limits RhoGAM was given at 28 weeks GC/chlamydia/Trichomonas-negative Group B streptococcus-negative Obstetrical history: . History of 1 emergency section at 38 weeks due to distress. Gynecologic history: No history of sexual transmitted diseases. Social history: She is single. She is unemployed. Review of Systems Constitutional: Denies chills, Denies fever Eyes: denies blurred vision, denies pain Ears, nose, mouth and throat: Denies headache, Denies sore throat Cardiovascular: Denies chest pain, Denies shortness of breath Respiratory: Denies cough Gastrointestinal: Reports abdominal pain Genitourinary: Reports pelvic pain, Reports Musculoskeletal: Reports low back pain Integumentary: Denies pruritus, Denies rash Neurological: Denies numbness, Denies weakness Psychiatric: Denies anxiety, Denies depression Past Medical History Past Medical History: Asthma History of Any Multi-Drug Resistant Organisms: None Reported Past Surgical History: Adenoidectomy, Section, Ear Surgery, Tonsillectomy Past Anesthesia/Blood Transfusion Reactions: No Reported Reaction Past Psychological History: No Psychological Hx Reported Smoking Status: Never smoker Past Alcohol Use History: Occasional Past Drug Use History: None Reported - Past Family History Mother History Unknown: Yes Medications and Allergies Home Medications Medication Instructions Recorded Confirmed Type Pnv No.95/Ferrous Fum/Folic AC 1 tab PO DAILY 03/15/21 03/15/21 History [ Multivitamin Tablet] Allergies Allergy/AdvReac Type Severity Reaction Status Date / Time milk Allergy Nausea & Verified 07/31/17 12:17 Vomiting & Diarrhea Exam Osteopathic Statement: *. No significant issues noted on an osteopathic structural exam other than those noted in the History and Physical/Consult. Vital Signs Temp Pulse Resp BP Pulse Ox 03/15/21 03:56 96.9 F L 95 16 155/87 97 03/15/21 03:22 96.9 F L 95 16 155/87 97 Intake and Output 03/14/21 03/15/21 03/15/21 22:59 06:59 14:59 Output Total 200 Balance -200 Output: Urine 200 Other: # Voids 1 Weight 79.379 kg HEENT: Within normal limits Heart: Regular rate and rhythm Lungs: Clear to auscultation bilaterally Abdomen: Cervix: Initially is 4 cm/70%/-2 station on admission with clear fluid noted and positive amnisure. heart tones: Category 1 on admission Contractions: Irregular on admission Extremities: Negative Homans Results Result Diagrams: 03/15/21 03:57 03/15/21 03:57 Abnormal Lab Results - Last 24 Hours (Table) 03/15/21 03/15/21 03/15/21 Range/Units 03:57 04:25 04:25 AST 45 H (14-36) U/L ALT 41 H (4-34) U/L Lactate Dehydrogenase 667 H (313-618) U/L Urine Blood Trace H (Negative) U Random Total Protein 24 H (<12) mg/dL Assessment and Plan (1) 40 weeks gestation of Current Visit: Yes Status: Acute Code(s): Z3A.40 - 40 WEEKS GESTATION OF SNOMED Code(s): 22792691 (2) Previous delivery affecting Current Visit: Yes Status: Acute Code(s): O34.219 - MATERNAL CARE FOR UNSP TYPE SCAR FROM PREVIOUS DEL SNOMED Code(s): 349798475 (3) Preeclampsia Current Visit: Yes Status: Acute Code(s): O14.90 - UNSPECIFIED PRE- ECLAMPSIA, UNSPECIFIED TRIMESTER SNOMED Code(s): 457586974 Plan: Admission for active labor. Expectant management. Will wait for spontaneous labor for a few hours and if no spontaneous labor, will start a little bit of Pitocin after internal monitors are placed. The patient denies any symptoms of preeclampsia however her labs show elevated AST and ALT along with LDH and increased protein creatinine ratio at 0.59. Patient is advised that we will start magnesium sulfate seizure prophylaxis for 24 hours after delivery. Will continue close monitoring with internal monitoring due to vaginal after .
[2021-03-15] MEDS ORDERED: ROPIVACAINE 100 MG, fentaNYL (PF). 200 MCG in SODIUM CHLORIDE 0.9% 76 ML EPIDURAL ONE (10:02)
--- NOTE | 2021-03-15 12:45 | P.PROBDLV ---
Vaginal Delivery Note - . Vaginal Delivery Note: The patient progressed to complete dilation after spontaneous rupture membranes with initially clear fluid noted but later thin meconium was noted. She did receive epidural anesthesia. Once reaching complete, she began pushing. 's head came to a crown. With one further push, the infant's head delivered across the perineum followed by the anterior shoulder. Nuchal cord times one was reduced around the body with delivery and infant was placed on mother's abdomen. Cord was clamped and cut and was taken to warmer for evaluation. A viable female was noted with scores of 9 at 1 minute and 9 at 5 minutes and weight of 7 lbs. 1 oz. Cord blood was obtained secondary to Rh- status. Placenta delivered shortly thereafter, intact, with a three-vessel cord. Uterus contracted fairly well after oxytocin was given and uterine massage was carried out. There were some clots that were expressed and then uterus did appear firm. Inspection of the perineum revealed a midline periurethral laceration that extended towards the left side. This area was anesthetized with 1% lidocaine and sutured with 3-0 Vicryl suture in a running locked fashion. She also had bilateral right and left first-degree vaginal sulcus tears. These areas were anesthetized with 1% lidocaine and then sutured with 3-0 or 2-0 Vicryl suture in a running locked fashion. Estimated blood loss is approximately 200 mL's. Both mother and infant are in stable condition.
[2021-03-15] MEDS ORDERED: SIMETHICONE 80 MG CHEWABLE PO PRN (12:49)
[2021-03-15] MEDS ORDERED: diphenhydrAMINE 50 MG CAP PO PRN (12:49)
[2021-03-15] MEDS ORDERED: HYDROCORTISONE 2.5% RECTAL CREAM 30 GM TUBE RECTAL PRN (12:49)
[2021-03-15] MEDS ORDERED: LABETALOL 5 MG/ML VIAL MDV IVP PRN ×3 (12:49)
[2021-03-15] MEDS ORDERED: diphenhydrAMINE 25 MG CAP PO PRN (12:49)
[2021-03-15] MEDS ORDERED: CALCIUM GLUCONATE 1 GM/10 ML VIAL IV PRN (12:49)
[2021-03-15] MEDS ORDERED: LANOLIN CREAM 5 GM TUBE TOPICAL PRN (12:49)
[2021-03-15] MEDS ORDERED: hydrALAZINE HCL 20 MG/ML 1 ML VIAL IVP PRN (12:49)
[2021-03-15] MEDS ORDERED: BENZOCAINE/MENTHOL SPRAY 1 GM/SPRAY AEROSOL TOPICAL PRN (12:49)
[2021-03-15] MEDS ORDERED: OXYTOCIN 30 UNITS/500 ML NS 30 UNIT in SALINE 1 500ML.BAG IV SCH (12:49)
[2021-03-15] MEDS ORDERED: diphenhydrAMINE 50 MG/ML 1 ML VIAL IVP PRN ×2 (12:49)
[2021-03-15] MEDS ORDERED: ZOLPIDEM 5 MG TAB PO PRN (12:49)
[2021-03-15] MEDS ORDERED: MAGNESIUM SULFATE-WATER PMX 4 GM in WATER FOR INJECTION 1 100ML.BAG IVPB ONE (12:49)
[2021-03-15] MEDS ORDERED: ACETAMINOPHEN TAB 325 MG TAB PO PRN (12:49)
[2021-03-15] MEDS: IBUPROFEN 600 MG TAB PO PRN ×2 (13:01→20:02)
[2021-03-15] MEDS: MAGNESIUM SULFATE-WATER PMX 20 GM in WATER FOR INJECTION 1 500ML.BAG IV SCH ×2 (13:33→23:14)
[2021-03-15] MEDS: SENNOSIDES-DOCUSATE SODIUM 1 EACH TAB PO SCH (20:03)
[2021-03-16] MEDS: IBUPROFEN 600 MG TAB PO PRN ×3 (05:31→21:51)
[2021-03-16 07:09] LABS: Basophils # (A) 0.1 k/uL (0-0.2); Basophils % (A) 1 %; Eosinophils % (A) 1 %; HCT 34.7 % (34.0-46.0); HGB 11.1 gm/dL (11.4-16.0); Hypochromasia Moderate; Lymphocytes # (A) 1.6 k/uL (1.0-4.8); Lymphocytes % (A) 20 %; MCH 28.4 pg (25.0-35.0); MCHC 31.9 g/dL (31.0-37.0); Mean Platelet Volume 8.2; Monocytes # (A) 0.5 k/uL (0-1.0); Monocytes % (A) 6 %; Neutrophils # (A) 5.8 k/uL (1.3-7.7); Neutrophils % (A) 71 %; Platelet Count 191 k/uL (150-450); RDW 15.5 % (11.5-15.5); WBC 8.1 k/uL (3.8-10.6)
[2021-03-16] MEDS: SENNOSIDES-DOCUSATE SODIUM 1 EACH TAB PO SCH ×2 (08:03→21:03)
--- NOTE | 2021-03-16 08:07 | P.PNOBGVD ---
Subjective - Subjective Principal diagnosis: status post vaginal delivery after day #1 Interval history: patient is doing well. She is tolerating regular diet. She is diuresing very well. Pain is minimal. Bleeding has and decreasing. She is switching to bottle feeding. Patient reports: Reports appetite normal, Reports voiding normally, Reports pain well controlled, Reports ambulating normally [place]: doing well, bottle feeding Objective - Latest Vital Signs Latest vital signs: Vital Signs Temp Pulse Resp BP Pulse Ox 03/16/21 06:00 79 16 115/59 98 03/16/21 05:00 66 16 116/60 99 03/16/21 04:00 66 16 123/71 99 03/16/21 03:00 66 16 119/71 99 03/16/21 02:00 69 16 115/70 99 03/16/21 01:00 76 16 130/87 99 03/16/21 00:00 96.4 F L 72 16 116/64 97 03/15/21 23:00 73 16 117/63 97 03/15/21 22:00 73 16 118/62 98 03/15/21 21:00 74 16 112/65 97 03/15/21 20:00 78 16 127/73 99 03/15/21 19:00 96.4 F L 83 16 130/76 03/15/21 18:00 96.4 F L 79 16 129/77 03/15/21 17:00 97.7 F 71 16 122/64 03/15/21 16:00 96.6 F L 75 16 130/68 03/15/21 15:10 97.9 F 73 16 128/71 03/15/21 14:40 78 16 125/69 03/15/21 14:10 77 16 129/69 03/15/21 13:55 85 16 129/67 03/15/21 13:40 78 16 127/69 03/15/21 13:25 85 16 123/67 03/15/21 13:10 80 16 135/74 03/15/21 12:55 85 16 134/65 03/15/21 12:40 98.8 F 85 16 136/64 Intake and Output 03/15/21 03/16/21 03/16/21 22:59 06:59 14:59 Intake Total 484.167 Output Total 2350 2400 Balance -0770 -0751.833 Intake: Intake, IV Titration 484.167 Amount Magnesium Sulfate-Water 484.167 Pmx 20 gm In Water For Injection 1 500ml.bag @ 2 GM/HR 50 mls/hr IV .Q10H [facility] Rx#:[id number] Output: Urine 2350 2400 - Exam Extremities: Present: normal. Absent: tenderness, edema Abdomen: Present: normal appearance, soft. Absent: distention, tenderness Uterus: Present: normal, firm. Absent: tenderness - Labs Labs: Abnormal Lab Results - Last 24 Hours (Table) 03/16/21 Range/Units 06:50 Hgb 11.1 L (11.4-16.0) gm/dL Assessment and Plan Assessment: status post vaginal after day #1 Preeclampsia-on magnesium sulfates seizure prophylaxis, blood pressures (1) 40 weeks gestation of Current Visit: Yes Status: Acute Code(s): Z3A.40 - 40 WEEKS GESTATION OF SNOMED Code(s): 12700304 (2) Previous delivery affecting Current Visit: Yes Status: Acute Code(s): O34.219 - MATERNAL CARE FOR UNSP TYPE SCAR FROM PREVIOUS DEL SNOMED Code(s): 359731561 (3) Preeclampsia Current Visit: Yes Status: Acute Code(s): O14.90 - UNSPECIFIED PRE- ECLAMPSIA, UNSPECIFIED TRIMESTER SNOMED Code(s): 949524662 Plan: we'll discontinue magnesium at noon today and observe blood pressures. Anticipate discharge home tomorrow as long as blood pressure stays stable.
--- NOTE | 2021-03-16 08:44 | P.MSEPDOC ---
Presenting Problems - Arrival Data Date of Arrival on Unit: 03/15/21 Time of Arrival on Unit: 03:34 Mode of Transport: Wheelchair - Complaint OB-Reason for Admission/Chief Complaint: Rule Out SROM Comment: pt. presents to triage due to possible SROM, amnisure positive Medical History - Information : 2 Para: 1 Term: 1 : 0 Abortions: Spontaneous or Elective: 0 Number of Living Children: 1 - Gestational Age Gestational Age by JAY JAY (wks/days): 40 Weeks and 0 Days - History Complications: Prior Comment: pt. is going to do a Review of Systems - Review of Systems Constitutional: No problems Breast: No problems ENT: No problems Cardiovascular: No problems Respiratory: No problems Gastrointestinal: No problems Genitourinary: No problems Musculoskeletal: No problems Neurological: No problems Skin: No problems Vital Signs - Temperature Temperature: 95.8 F Temperature Source: Axillary - Pulse Pulse Oximetery Pulse Rate: 75 Pulse Assessment Method: Automatic Cuff - Respirations Respiratory Rate: 16 Oxygen Delivery Method: Room Air - Blood Pressure Right Arm Blood Pressure: 125/72 Blood Pressure Mean: 89 Blood Pressure Source: Automatic Cuff Medical Screen Scoring - Cervical Exam Dilation (cm): 4 Effacement (%): 70 Station: -2 Membranes: Ruptured - Assessment - Baby A Baseline FHR: 125 Heart Rate - NICHD Category: Category I (Normal) NST: Reactive Physician Notification - Physician Notified Physician Notified Date: 03/15/21 Physician Notified Time: 03:46 Physician: Leonor Figueroa Order Received: Yes - Notification Comment Comment: admit pt. for labor, not starting pit at this time, monitoring pt. and send PI[facility] lab workup Maternal Triage Index - Maternal Triage Index Presenting for scheduled procedure w/no complaint: No - Stat/Priority 1 Stat Priority 1: No - Urgent/Priority 2 Urgent Priority 2: No - Prompt/Priority 3 Prompt Priority 3: No - Non-Urgent/Priority 4 Non-Urgent Priority 4: Yes Criteria Met for Priority 4: SROM at 0300, amnisure positive, pt. is a Disposition - Disposition OB Disposition: Admit I agree with the RN Medical Screening Exam: Yes Case reviewed; plan agreed upon as documented in EMR&OBIX.: Yes Diagnosis: ENCOUNTER FOR FULL-TERM UNCOMPLICATED DELIVERY
[2021-03-16] MEDS: PRENATAL VIT-IRON-FOLIC ACID 1 EACH CAP PO SCH (08:58)
[2021-03-16] MEDS: MAGNESIUM SULFATE-WATER PMX 20 GM in WATER FOR INJECTION 1 500ML.BAG IV SCH (08:58)
[2021-03-17] MEDS: IBUPROFEN 600 MG TAB PO PRN (06:13)
[2021-03-17] MEDS: PRENATAL VIT-IRON-FOLIC ACID 1 EACH CAP PO SCH (07:49)
[2021-03-17] MEDS: SENNOSIDES-DOCUSATE SODIUM 1 EACH TAB PO SCH (07:49)
--- NOTE | 2021-03-17 08:44 | P.DS ---
Providers Date of admission: 03/15/21 03:43 Expected date of discharge: 03/17/21 Attending physician: Leonor Figueroa Primary care physician: Stated None - Discharge Diagnosis(es) (1) 40 weeks gestation of Current Visit: Yes Status: Acute (2) Previous delivery affecting Current Visit: Yes Status: Acute (3) Preeclampsia Current Visit: Yes Status: Acute Hospital Course: this is a 25-year-old female 2 para 1 at 40-0/7 weeks who presents with complaints of spontaneous rupture of membranes. She proceeds to have a successful vaginal after section on 03/15/2021 with a delivery of a viable female with scores of 9 at 1 minute and 9 at 5 minutes and weight of 7 lbs. 1 oz. On admission she did have some elevated blood pressures and labs were drawn. She did have some mildly elevated liver enzymes and a protein creatinine ratio of 0.59. She was started on magnesium sulfate seizure prophylaxis for 24 hours after delivery. Currently she denies any symptoms. She denies headaches, blurry vision, epigastric pain, or swelling. Her blood pressures have been normal since delivery. She is breast-feeding. Lochia is decreasing. Pain is well-controlled with ibuprofen. Vital signs are stable. Abdomen is soft with fundus firm and nontender. Extremities show negative Homans. Impression is status post vaginal delivery day or 2, preeclampsia without severe features-status post magnesium sulfate seizure prophylaxis. Plan is to discharge home today. Routine instructions are given. She will be given a prescription for ibuprofen. She is advised follow-up in the office in 1-2 weeks for a blood pressure check. Her mother does state that she has a blood pressure cuff at home and will check her blood pressures periodically. She is advised to call the office if she has any further questions or concerns prior to her appointment time. Procedures: vaginal after on 03/15/2021 Patient Condition at Discharge: Stable Plan - Discharge Summary New Discharge Prescriptions: New Ibuprofen [Motrin] 600 mg PO Q6HR PRN #60 tab PRN Reason: Mild Pain (Scale 1 To 3) Continue Pnv No.95/Ferrous Fum/Folic AC [ Multivitamin Tablet] 1 tab PO DAILY Discharge Medication List Pnv No.95/Ferrous Fum/Folic AC [ Multivitamin Tablet] 1 tab PO DAILY 03/15/21 [History] Ibuprofen [Motrin] 600 mg PO Q6HR PRN #60 tab 03/17/21 [Rx] Follow up Appointment(s)/Referral(s): Leonor Figueroa DO [Doctor of Osteopathic Medicine] - 04/26/21 2:00 pm Activity/Diet/Wound Care/Special Instructions: Instructions 1. Do not begin any exercise program for 3 weeks. 2. Do not resume sexual relations for 3 weeks or longer if uncomfortable. 3. You may take tub baths or showers at any time. 4. You may use tampons if desired after 3 weeks. 5. Keep the area of episiotomy (stitches) clean and dry. 6. If you are not nursing, wear a good fitting, supportive bra during the day and limit fluid intake for at least 1 week to prevent breast engorgement. 7. Call the office, [phone], within the next week to make appointment for your 6 week checkup if it has not already been made. 8. Report any of the following occurrences to the doctor promptly: a. Heavy, excessive bleeding b. Chills, fever c. Burning or frequency of urination d. Pain or redness and breasts if nursing e. Increasing pain or swelling in episiotomy (stitches). In addition to the above instructions, the following additional should be followed: 1. No heavy lifting or straining (exercising) until after 6 week checkup. 2. Keep abdominal incision clean and dry: You may wear a dressing if more comfortable. 3. Make office appointment for 10 days after going home or as instructed by her doctor. Discharge Disposition: HOME SELF-CARE
[2021-03-17 16:23] VITALS: BP 128/66; PULSE 88; RESP 20; TEMP 98.4
== END 2021-03-17 15:50 | disposition home or self-care (01) | DRG 807 ==
LOC: FBPOP 03:20 → 4FBP 03:43
PROVIDERS: ADMIT Obstetrics & Gynecology; ATTEND Obstetrics & Gynecology
PROC: 10E0XZZ Delivery of Products of Conception, External Approach (ICD-10-PCS; principal; 2021-03-15)
PROC: 0UQMXZZ Repair Vulva, External Approach (ICD-10-PCS; 2021-03-15)
PROC: 4A0HXCZ Measurement of Products of Conception, Cardiac Rate, External Approach (ICD-10-PCS; 2021-03-15)
PROC: 3E033VJ Introduction of Other Hormone into Peripheral Vein, Percutaneous Approach (ICD-10-PCS; 2021-03-15)
PROC: 0HQ9XZZ Repair Perineum Skin, External Approach (ICD-10-PCS; 2021-03-15)
DX: O34.219 Maternal care for unspecified type scar from previous cesarean delivery (principal); O14.94 Unspecified pre-eclampsia, complicating childbirth; Z37.0 Single live birth; O70.0 First degree perineal laceration during delivery; O71.82 Other specified trauma to perineum and vulva; J45.909 Unspecified asthma, uncomplicated; O69.81X0 Labor and delivery complicated by cord around neck, without compression, not applicable or unspecified; O77.0 Labor and delivery complicated by meconium in amniotic fluid; O99.52 Diseases of the respiratory system complicating childbirth; Z3A.40 40 weeks gestation of pregnancy; Z91.011 Allergy to milk products
CPT/HCPCS: 59025; 81001; 82565; 82570; 83615; 83735; 84112; 84156; 84450; 84460; 84520; 84550; 85025; 85384; 85610; 85730; 86850; 86900; 86901; 99213